=== PATIENT | female | born 1955 | race Caucasian/White ===

== ENCOUNTER 2017-07-28 13:29 | Emergency (ER) | payer BC, OTHER ==
[2017-07-28 13:44] VITALS: BP 122/66; PULSE 76; TEMP 98.4; BMI 32.9
--- NOTE | 2017-07-28 15:00 | PDOC ---
History of Present Illness - General History Source: Patient, Family Exam Limitations: No Limitations - History of Present Illness Initial Comments: 07/28/17 15:40 The patient is a 61 year old female, with a significant past medical history of CAD s/p CABG (2 weeks ago), Breast CA (s/p Lumpectomy) who presents to the emergency department s/p near syncope. As per , patient had recent quadruple CABG at [facility] two weeks ago and was discharged home 5 days after. Today , patient went to PCP office for follow up visit and nearly syncopized while standing. Patient suddenly became diaphoretic, pale and clammy. Patient denies was caught by before falling to the ground. Patients blood glucose was measured to be at 203 and was sent to the ED for further evaluation. Patient denies chest pain, palpitations, headache or dizziness. Patient denies fever, chills, abdominal pain, nausea, vomit, diarrhea or constipation. Patient denies dysuria, frequency, urgency or hematuria. Patient denies sick contacts or recent travel. Allergies: NKA Past surgical history: Quadruple CABG Social history: None PCP: Dr. Smith <Ly Sumner - Last Filed: 07/28/17 17:21> <Ann Marie Lazo - Last Filed: 07/28/17 18:30> - General Chief Complaint: Lightheaded Stated Complaint: Lightheaded Time Seen by Provider: 07/28/17 14:04 Past History <Ly Sumner - Last Filed: 07/28/17 17:21> - Past Medical History Anemia: No Asthma: No Cancer: Yes (LEFT BREAST CANCER;LUMPECTOMY) Cardiac Disorders: Yes ([place], CABG) CVA: No COPD: No CHF: No Dementia: No Diabetes: Yes (IDDM) GI Disorders: No Disorders: No HTN: Yes Hypercholesterolemia: No Liver Disease: No Seizures: No Thyroid Disease: No - Surgical History Abdominal Surgery: No Appendectomy: No Cardiac Surgery: No Cholecystectomy: No Lung Surgery: No Neurologic Surgery: No Orthopedic Surgery: No - Suicide/Smoking/Psychosocial Hx Smoking History: Never smoked Have you smoked in the past 12 months: No Hx Alcohol Use: No Drug/Substance Use Hx: No Substance Use Type: None Hx Substance Use Treatment: No <Ann Marie Lazo - Last Filed: 07/28/17 18:30> - Past Medical History Allergies/Adverse Reactions: Allergies Allergy/AdvReac Type Severity Reaction Status Date / Time No Known Drug Allergies Allergy Verified 02/23/13 06:48 Home Medications: Ambulatory Orders Insulin Pump Cartridge 0 units SCJ PRN 11/26/11 Acetaminophen [Tylenol .Regular Strength -] 650 mg PO Q4HPO #0 tablet NS Aspirin [ASA -] 325 mg PO DAILY 07/28/17 Famotidine 20 mg PO BID 07/28/17 Furosemide 20 mg PO DAILY 07/28/17 Metoprolol Tartrate 75 mg PO BID 07/28/17 Oxycodone HCl 5 mg PO QID 07/28/17 Potassium Chloride 10 meq PO DAILY 07/28/17 Review of Systems - Review of Systems Able to Perform ROS?: Yes Comments:: 07/28/17 15:40 GENERAL/CONSTITUTIONAL: +lightheadedness. No fever or chills. No weakness. HEAD, EYES, EARS, NOSE AND THROAT: No change in vision. No ear pain or discharge. No sore throat. GASTROINTESTINAL: No nausea, vomiting, diarrhea or constipation. GENITOURINARY: No dysuria, frequency, or change in urination. CARDIOVASCULAR: No chest pain or shortness of breath. RESPIRATORY: No cough, wheezing, or hemoptysis. MUSCULOSKELETAL: No joint or muscle swelling or pain. No neck or back pain. SKIN: No rash NEUROLOGIC: No headache, vertigo, loss of consciousness, or change in strength/ sensation. ENDOCRINE: No increased thirst. No abnormal weight change. HEMATOLOGIC/LYMPHATIC: No anemia, easy bleeding, or history of blood clots. ALLERGIC/IMMUNOLOGIC: No hives or skin allergy. <Ly Sumner - Last Filed: 07/28/17 17:21> *Physical Exam - Vital Signs Last Vital Signs Temp Pulse Resp BP Pulse Ox 98.4 F 76 18 122/66 97 07/28/17 13:38 07/28/17 13:38 07/28/17 13:38 07/28/17 13:38 07/28/17 13:38 <Ly Sumner - Last Filed: 07/28/17 17:21> - Vital Signs Last Vital Signs Temp Pulse Resp BP Pulse Ox 98.4 F 76 18 122/66 97 07/28/17 13:38 07/28/17 13:38 07/28/17 13:38 07/28/17 13:38 07/28/17 13:38 - Physical Exam Comments: GENERAL: Awake, alert, and fully oriented, in no acute distress HEAD: No signs of trauma EYES: PERRLA, EOMI, sclera anicteric, conjunctiva clear ENT: Auricles normal inspection, hearing grossly normal, nares patent, oropharynx clear without exudates. Moist mucosa NECK: Normal ROM, supple, no lymphadenopathy, JVD, or masses LUNGS: Breath sounds equal, clear to auscultation bilaterally. No wheezes, and no crackles HEART: Regular rate and rhythm, normal S1 and S2, no murmurs, rubs or gallops ABDOMEN: Soft, nontender, normoactive bowel sounds. No guarding, no rebound. No masses EXTREMITIES: Normal range of motion, no edema. No clubbing or cyanosis. No cords, erythema, or tenderness NEUROLOGICAL: Cranial nerves II through XII grossly intact. Normal speech, normal gait SKIN: Warm, Dry, normal turgor, no rashes or lesions noted. +Midline sternotomy scar, healing, no signs of infection. <Ann Marie Lazo - Last Filed: 07/28/17 18:30> Heart Score/ECG Review - ECG Impressions Comment:: EKG 14:23- NSR 82 bpm, inv T waves III, aVF, V3-V6 <Ann Marie Lazo - Last Filed: 07/28/17 18:30> ED Treatment Course - LABORATORY CBC & Chemistry Diagram: 07/28/17 15:01 07/28/17 15:01 - ADDITIONAL ORDERS Additional order review: Laboratory Results 07/28/17 07/28/17 15:01 15:01 PT with INR 12.70 H INR 1.12 Sodium 137 Potassium 4.4 Chloride 104 Carbon Dioxide 27 Anion Gap 6 L BUN 10 Creatinine 0.6 Creat Clearance w eGFR > 60 Random Glucose 271 H Calcium 8.5 Total Bilirubin 0.4 D AST 12 L ALT 16 Alkaline Phosphatase 138 H Creatine Kinase 41 Troponin I 0.03 Total Protein 6.9 Albumin 3.3 L 07/28/17 15:01 RBC 3.53 L MCV 87.4 MCHC 33.4 RDW 14.7 MPV 9.0 Neutrophils % 71.7 D Lymphocytes % 17.2 D Monocytes % 9.1 Eosinophils % 1.4 Basophils % 0.6 <Ly Sumner - Last Filed: 07/28/17 17:21> - LABORATORY CBC & Chemistry Diagram: 07/28/17 15:01 07/28/17 15:01 <Ann Marie Lazo - Last Filed: 07/28/17 18:30> Medical Decision Making - Medical Decision Making 07/28/17 17:[address] Emmy Little at [phone] 07/28/17 17:21 Discussed patient's case with Dr. Wright (carton machine operator for Dr. Little) <Ly Sumner - Last Filed: 07/28/17 17:21> - Medical Decision Making 07/28/17 16:38 Labs wnl, CE negative x1. Called patient's poultry helper Dr. Emmy Little at [phone], left message. Awaiting callback. 07/28/17 17:23 Case d/w Dr. Burdick, covering Dr. Little. Patient's EKG is similar to last one they have on file. Pt has appointment tomorrow morning. She is asymptomatic. Stable for DC home. <Ann Marie Lazo - Last Filed: 07/28/17 18:30> *DC/Admit/Observation/Transfer - Attestations Scribe Attestion: 07/28/17 15:40 Documentation prepared by Ly Sumner, acting as medical claims manager for Ann Marie Lazo MD <Ly Sumner - Last Filed: 07/28/17 17:21> - Discharge Dispostion Admit: No <Ann Marie Lazo - Last Filed: 07/28/17 18:30> Diagnosis at time of Disposition: Lightheadedness - Discharge Dispostion Disposition: HOME Condition at time of disposition: Stable - Patient Instructions Printed Discharge Instructions: DI for Dizziness-Nonvertigo Additional Instructions: FOLLOW UP WITH DR. LITTLE SCHEDULED TOMORROW. RETURN TO THE ER IMMEDIATELY FOR ANY CHEST PAIN, SHORTNESS OF BREATH, OR ANY OTHER CONCERNING SYMPTOMS.
[2017-07-28 15:10] LABS: BASO % 0.6 % (0-2.0); EOS % 1.4 % (0-4.5); HEMATOCRIT 30.8 % (32.4-45.2); HEMOGLOBIN 10.3 GM/dL (10.7-15.3); LYMPH % 17.2 % (8-40); MCH 29.2 pg (25.7-33.7); MCHC 33.4 g/dl (32.0-36.0); MEAN CELL VOLUME 87.4 fl (80-96); MONO % 9.1 % (3.8-10.2); NEUT % 71.7 % (42.8-82.8); PLATELET COUNT 327 K/MM3 (134-434); RBC 3.53 M/mm3 (3.60-5.2); RDW 14.7 % (11.6-15.6)
[2017-07-28 15:25] LABS: INR 1.12 (0.82-1.09); PROTHROMBIN TIME (PATIENT) 12.7 SEC (9.98-11.88)
[2017-07-28 15:29] LABS: ALBUMIN 3.3 g/dl (3.4-5.0); ANION GAP 6 (8-16); BILIRUBIN,TOTAL 0.4 mg/dL (0.2-1.0); CALCIUM 8.5 mg/dL (8.5-10.1); CHLORIDE 104 mmol/L (98-107); CO2 27 mmol/L (21-32); CREATININE 0.6 mg/dL (0.55-1.02); GLUCOSE,RANDOM 271 mg/dL (74-106); POTASSIUM 4.4 mmol/L (3.5-5.1); SGOT/AST 12 U/L (15-37); SGPT/ALT 16 U/L (12-78); SODIUM 137 mmol/L (136-145); TOT PROT 6.9 g/dl (6.4-8.2)
[2017-07-28 15:33] LABS: ALK PHOS 138 U/L (45-117); BLOOD UREA NITROGEN 10 mg/dL (7-18)
--- NOTE | 2017-07-28 23:06 | EKG ---
Test Reason : Blood Pressure : / mmHG Vent. Rate : 082 BPM Atrial Rate : 082 BPM P-R Int : 148 ms QRS Dur : 088 ms QT Int : 398 ms P-R-T Axes : 054 019 -24 degrees QTc Int : 464 ms NORMAL SINUS RHYTHM T WAVE ABNORMALITY, CONSIDER INFERIOR ISCHEMIA ABNORMAL ECG WHEN COMPARED WITH ECG OF 17-FEB-2013 11:51, T WAVE INVERSION NOW EVIDENT IN ANTERIOR LEADS Confirmed by MILES AZAR, KARLA ([id number]) on 07/28/2017 11:06:53 PM Referred By: Confirmed By:KARLA AQUINO MD
== END 2017-07-28 17:42 | disposition home or self-care (01) ==
LOC: JER 13:29
DX: R42 Dizziness and giddiness (principal); I25.810 Atherosclerosis of coronary artery bypass graft(s) without angina pectoris; I10 Essential (primary) hypertension; Z95.1 Presence of aortocoronary bypass graft; E11.9 Type 2 diabetes mellitus without complications; Z79.4 Long term (current) use of insulin; Z85.3 Personal history of malignant neoplasm of breast
CPT/HCPCS: 36415; 71045-TC-FY; 80053; 82550; 84484; 85025; 85610; 93005; 93010; 99284-25

== ENCOUNTER → 2019-07-19 | Day surgery (SDC) | payer BC, OTHER ==
[2019-07-16 16:16] VITALS: BMI 31.8
[2019-07-19 09:15] VITALS: TEMP 98
[2019-07-19 09:22] VITALS: BP 132/59; PULSE 84
--- NOTE | 2019-07-20 16:43 | PATH ---
Surgical Pathology Report Patient Name: [facility]. Rec. #: [id number] /Age/Gender: 1955 (Age: 63) / F Account: [id number] Location: U-ENDOSCOPY Taken: 07/19/2019 Received: 07/19/2019 Reported: 07/20/2019 Physicians: Caroline Rubalcava M.D. Specimen(s) Received A: RIGHT COLON POLYP B: POLYP SIGMOID Clinical History Adenoma surveillance Final Diagnosis A. RIGHT COLON POLYP, POLYPECTOMY: HYPERPLASTIC POLYP. B. SIGMOID POLYP, BIOPSY: POLYPOID COLONIC MUCOSA WITH REACTIVE LYMPHOID AGGREGATES AND FOCAL SURFACE HYPERPLASTIC CHANGE. Electronically Signed Jovita Reaves M.D. Gross Description A. Received in formalin, labeled "right colon polyp" are 4 rollins, irregular portions of soft tissue ranging from 0.2-0.3 cm. in greatest dimension. The specimens are submitted in toto in one cassette. B. Received in formalin, labeled "sigmoid polyp" are 2 rollins, irregular portions of soft tissue measuring 0.2 and 0.4 cm. in greatest dimension. The specimens are submitted in toto in one cassette. DL/07/19/2019 saudi/07/19/2019
== END | disposition home or self-care (01) ==
LOC: JASU-ENDO 07:25
PROVIDERS: ATTEND Internal Medicine Gastroenterology
PROC: 0DBN8ZX Excision of Sigmoid Colon, Via Natural or Artificial Opening Endoscopic, Diagnostic (ICD-10-PCS; 2019-07-19)
PROC: 0DBK8ZX Excision of Ascending Colon, Via Natural or Artificial Opening Endoscopic, Diagnostic (ICD-10-PCS; principal; 2019-07-19 08:00)
DX: Z86.010 Personal history of colon polyps (principal); K57.30 Diverticulosis of large intestine without perforation or abscess without bleeding
CPT/HCPCS: 88305-TC

== ENCOUNTER 2024-04-09 04:33 | Day surgery (SDC) | payer OTHER ==
[2024-04-05 12:01] VITALS: BMI 30.7
[2024-04-09 11:01] VITALS: RESP 18; TEMP 98.2
[2024-04-09 11:36] VITALS: BP 126/55; PULSE 68
== END 2024-04-09 11:45 | disposition home or self-care (01) ==
LOC: JASU-ENDO 04:33
PROVIDERS: ATTEND Internal Medicine Gastroenterology
PROC: 0DJD8ZZ Inspection of Lower Intestinal Tract, Via Natural or Artificial Opening Endoscopic (ICD-10-PCS; principal; 2024-04-09 10:00)
DX: Z12.11 Encounter for screening for malignant neoplasm of colon (principal); K56.41 Fecal impaction; Z86.0100 Personal history of colon polyps, unspecified
CPT/HCPCS: 82962